=== PATIENT | female | born 1945 | race Caucasian/White ===

== ENCOUNTER → 2021-02-21 | Outpatient (CLI) | payer MEDICARE ==
[2021-02-21 13:48] LABS: Basophils % (A) 1 %; Eosinophils # (A) 0.2 k/uL (0-0.7); Eosinophils % (A) 2 %; HGB 13.4 gm/dL (11.4-16.0); Lymphocytes % (A) 16 %; MCH 29.8 pg (25.0-35.0); MCHC 32.8 g/dL (31.0-37.0); MCV 90.9 fL (80.0-100.0); Mean Platelet Volume 6.8; Monocytes # (A) 0.5 k/uL (0-1.0); Monocytes % (A) 8 %; Neutrophils # (A) 4.5 k/uL (1.3-7.7); Neutrophils % (A) 71 %; Platelet Count 317 k/uL (150-450); RBC 4.52 m/uL (3.80-5.40); RDW 12.2 % (11.5-15.5); WBC 6.3 k/uL (3.8-10.6)
[2021-02-21 13:58] LABS: Partial Thromboplastin Time 23.8 sec (22.0-30.0); Prothrombin Time 10.4 sec (9.0-12.0)
[2021-02-21 14:03] LABS: African American GFR (CKD) >90 (>60 ml/min/1.73 sqM); Anion Gap 8 mmol/L; Blood Urea Nitrogen 13 mg/dL (7-17); Calcium 9.4 mg/dL (8.4-10.2); Carbon Dioxide 27 mmol/L (22-30); Chloride 104 mmol/L (98-107); Glucose 108 mg/dL (74-99); Non-African American GFR(CKD) 89 (>60 ml/min/1.73 sqM); Potassium 4.1 mmol/L (3.5-5.1); Sodium 139 mmol/L (137-145)
[2021-02-21 14:30] LABS: Appearance,Urine Clear (Clear); Bilirubin,Urine Negative (Negative); Blood,Urine Trace (Negative); Color,Urine Yellow; Glucose,Urine (UA) Negative (Negative); Ketones,Urine 1+ (Negative); Leukocyte Esterase,Urine Moderate (Negative); Mucus,Urine Rare /hpf; Nitrite,Urine Negative (Negative); Protein,Urine Negative (Negative); RBC,Urine 2 /hpf (0-5); Specific Gravity,Urine 1.018 (1.001-1.035); Squamous Epithelial Cell,Urine 3 /hpf (0-4); WBC,Urine 10 /hpf (0-5)
== END | disposition home or self-care (01) ==
LOC: LABPAT 12:22
PROVIDERS: ATTEND Orthopaedic Surgery Orthopaedic Surgery of the Spine
DX: Z01.812 Encounter for preprocedural laboratory examination (principal); Z01.810 Encounter for preprocedural cardiovascular examination; M43.10 Spondylolisthesis, site unspecified
CPT/HCPCS: 36415; 80048; 81001; 85025; 85610; 85730; 87070

== ENCOUNTER 2021-03-02 06:47 | Observation (INO) | payer BC, MEDICARE ==
[2021-02-28 10:46] VITALS: BMI 34.3
[~2021-03-02 06:47] MED LIST: ceFAZolin 1,000 MG in SODIUM CHLORIDE 0.9% IRRIGATIO 1,000 ML IRRIGATION PRN
[2021-03-02] MEDS ORDERED: ONDANSETRON 4 MG/2 ML VIAL IVP ONE (07:40)
[2021-03-02] MEDS ORDERED: LIDOCAINE 1% (10MG/ML) FOR IV START INTRADERMA PRN (07:40)
[2021-03-02] MEDS: LACTATED RINGERS 1,000 ML IV SCH (08:02)
[2021-03-02] MEDS ORDERED: MIDAZOLAM 2 MG/2 ML VIAL ONE (08:12)
[2021-03-02] MEDS ORDERED: HYDROmorphone (PF) 1 MG/ML ONE (08:12)
[2021-03-02] MEDS ORDERED: KETAMINE 10 MG/ML 20 ML VIAL ONE (08:12)
[2021-03-02] MEDS ORDERED: PROPOFOL 10 MG/ML 20 ML VIAL IV ONE (08:12)
[2021-03-02] MEDS ORDERED: NEOSTIGMINE 1 MG/ML 10 ML VIAL ONE (08:12)
[2021-03-02] MEDS ORDERED: SUCCINYLCHOLINE CHLORIDE 100 MG/5 ML SYR IV ONE (08:12)
[2021-03-02] MEDS ORDERED: ROCURONIUM 10 MG/ML (5 ML VIAL) IV ONE (08:12)
[2021-03-02] MEDS ORDERED: GLYCOPYRROLATE 0.2 MG/ML 2 ML VIAL ONE (08:12)
[2021-03-02] MEDS ORDERED: LIDOCAINE 1% INJ 10MG/ML (20 ML MDV) ONE (08:12)
[2021-03-02] MEDS ORDERED: PHENYLEPHRINE-0.9% NACL SYG 1,000 MCG/10 ML SYRINGE ONE (08:12)
[2021-03-02] MEDS ORDERED: fentaNYL (PF) 50 MCG/ML 2 ML AMP ONE (08:12)
[2021-03-02] MEDS ORDERED: GELATIN SPONGE,ABSORB (LARGE) 1 EACH SPONGE TOPICAL ONE (08:17)
[2021-03-02] MEDS ORDERED: THROMBIN (BOVINE) 5,000 UNIT VIAL TOPICAL ONE (08:17)
[2021-03-02] MEDS ORDERED: LIDOCAINE 0.5%-EPI 1:200,000 50 ML VIAL SQ ONE (08:17)
[2021-03-02] MEDS ORDERED: LACTATED RINGERS 1,000 ML IV ONE (09:15)
[2021-03-02] MEDS ORDERED: SENNOSIDES-DOCUSATE SODIUM 1 EACH TAB PO PRN (11:38)
[2021-03-02] MEDS ORDERED: MAGNESIUM HYDROXIDE 2,400 MG/10 ML CUP PO PRN (11:38)
[2021-03-02] MEDS ORDERED: BENZOCAINE/MENTHOL LOZENG 1 EACH LOZENGE MUCOUS MEM PRN (11:38)
[2021-03-02] MEDS ORDERED: IPRATROPIUM-ALBUTEROL 3 ML NEB INHALATION PRN (11:39)
[2021-03-02] MEDS ORDERED: ALBUTEROL NEBULIZED 2.5 MG/3 ML INHALATION PRN (11:39)
[2021-03-02] MEDS ORDERED: ONDANSETRON 4 MG/2 ML VIAL IVP PRN (11:49)
--- NOTE | 2021-03-02 11:49 | P.OP ---
Date of Procedure: 03/02/21 Preoperative Diagnosis: Spondylolisthesis L4 5, severe spinal stenosis L4 5, degenerative scoliosis, degenerative disc disease, lower extremity radiculopathy, neurogenic claudication, lower extremity weakness Postoperative Diagnosis: Same Anesthesia: GETA Pathology: none sent Condition: stable Disposition: PACU Description of Procedure: DESCRIPTION OF PROCEDURE(S): BRIEF OPERATIVE NOTE Preoperative Diagnosis: Spondylolisthesis L4 5, severe spinal stenosis L4 5, degenerative scoliosis, degenerative disc disease, lower extremity radiculopathy, neurogenic claudication, lower extremity weakness Postoperative Diagnosis: Same Procedure: Laminectomy and decompression L4 [address] navigation aided Minimally invasive Posterior lateral decompression and fusion L4 5 Minimally invasive Transforaminal lumbar interbody fusion for a 360 fusion L4 5 Discectomy for decompression L4 5 Placement of interbody graft L4 5 Use of computer navigation for fusion Local autogenous bone grafting Aspiration of bone marrow from the vertebral body pedicle L4 the right Use of bone graft extenders Surgeon: Dr. Martin [employer] [facility]: Joel HALL who is present throughout the entire the case persistence during positioning, dissection, exposure, visualization, and all crucial elements of the case as well as closure. Anesthesia: General anesthesia per Dr. Sapp Estimated blood loss: Approximately 200 mL Complications: None apparent Components implanted: K2M minimally invasive [place] pedicle screw system withscrews measuring 6.5 mm in diameter to rods one [place] interbody cage with 10 mL of osteo amp bio4 bone graft substitute and 30 mL of the BX bone fibers to supplement the local autogenous bone graft and bone marrow aspirate Disposition: To recovery room in good stable condition. OPERATIVE INDICATIONS The patient has had severe issues at their lower extremity in her lower back over the past several years with significant worsening over the past several months. Over the past few months the patient had pain at their back and their lower extremities. The patient is having severe radicular symptoms at their lower extremity with weakness. The patient is having significant pain in their back. They are unable to obtain any comfort. She is having worsening pain and significant debility due to her back. She is found have spondylolisthesis with dynamic listhesis and severe spinal stenosis at L4 5 which correlated with her low back and lower extremity pain numbness tingling and weakness. We did aggressive conservative treatment with medications therapy and interventional pain management however thery were not having any relief. The patient also showed evidence of a listhesis with some dynamic instability. The patient has been through conservative treatment. We discussed various treatment options including surgery, and the patient wishes to proceed with surgery We discussed the risk, patient's alternatives and benefits of surgery including but not limited to, risk of bleeding risk of infection, risk of need for further surgery, risk of decreased, loss of motion, muscle function, malunion nonunion, hardware failure, nerve damage, paralysis, heart attack, blindness and . The patient had full workup preoperatively and understands that she has some increased risk particular due to her pulmonary function with the surgery of this magnitude. She felt that she could not go on with her back feeling the way did. They understood issues with the current pandemic and the possibility of exposure. OPERATIVE SUMMARY After discussing all the risks, patient alternatives and benefits at length, the patient elected to proceed with surgical intervention, signed informed consent, and presented for their procedure. The patient was seen and examined in the preoperative holding area and the surgical site was marked. The patient was given antibiotics and brought to the operating room. The patient was sedated and intubated by anesthesia in standard fashion. The patient was positioned on to the operating room table in a prone position on the appropriate frame which was well-padded and well molded. We were careful to pad any bony prominences and pressure points. We were careful to maintain the patient's cervical spine and good neutral alignment and position throughout. The patient was prepped and draped in a normal standard fashion. An appropriate timeout and keystone protocol performed. We were able to proceed with the surgery. The local wound area was infiltrated with local anesthetic. Over the right iliac crest I was able to make small stab incisions and establish a guidepin screw fixation to the iliac crest 2. I was able place the computer referencing device over the guidepins to establish an appropriate reference point for the Ziem CT navigation. We then were able to place patient in an appropriate drape and do a navigation spin for visualization and 3-D reconstruction of the lumbar spine. I was able utilize C-arm guidance and navigation to establish appropriate position over the pedicles bilaterally at the appropriate levels at L4 and L5 bilaterally . With the appropriate levels confirmed was able to make small incisions over the appropriate pedicle sites bilaterally. Utilizing the computer navigation device I was able to establish bony landmarks at the right iliac crest for a bony reference point for the navigation device. I was able to establish a [place]sh[place] needle over the lateral aspect of the pedicle and advanced the trocar into the pedicle being careful not to breech superiorly inferiorly medially or laterally using computer navigation device. Position was confirmed regularly with AP and lateral images on C-arm and with the computer navigation device at the appropriate levels bilaterally. I was able to establish the trocar into the pedicle appropriately into the posterior aspect of the vertebral body bilaterally at the appropriate levels. This was done at each of the pedicle positions and each of the vertebrae. At the superior vertebrae I was able to take approximately 25 mL of bone aspiration for use later in the case to supplement the allograft and autograft bone. I was able place the guidewire into the trocar and into the vertebral body appropriately under C-arm guidance. Dissection was taken down over the wire to the appropriate starting position for the screw placed. The appropriate length screw was chosen, threaded over the guidewire and screwed appropriately into the pedicle and vertebral body under C-arm guidance in excellent alignment and position with good bony purchase. This is done at each of the screw sites at the appropriate levels at L4 and L5 bilaterally. We decided to do a repeat spin and found good alignment and good position of all 4 screws at L4 and L5 With the screws intact I extended the incision to connect the screw hole sites on the most symptomatic side on the right. I dissected down to establish access over the pars and lamina to the base of the spinous process. I was able to expose the facet joint. The capsule the facet was taken down and showed some facet arthrosis at the joint. I was able to use a combination of curettes and Kerrison rongeurs and a high-speed drill to take down the facet joint and do a facetectomy at L4 5. Note was made of severe central and bilateral foraminal stenosis. There is severe facet arthrosis. I was able get excellent foraminal decompression and central decompression with undermining across midline to perform a laminectomy centrally and contralaterally. I was able get good central decompression. The ligamentum flavum was taken down to further decompress centrally and at bilateral neural foramen. I was able to expose the disc space and visualize the traversing nerve root. Note was made of some disc protrusion and disc herniation that was abutting the traversing nerve root at the level causing further compression of the nerve root. I was able to establish a annulotomy at the appropriate level protecting soft tissue and neural structures. Note was made of some disc desiccation at the disc. I performed a complete discectomy with accommodation of curettes and rasps and scrapers. I was able get good endplate preparation at the disc space. I sized for the appropriate size interbody spacer protecting the soft tissue and neural structures. The wound was copiously irrigated and suctioned dry. There is no evidence of any dural tear or leak. I was able to pack the disc space with local autogenous bone graft as well as a small amount of bone graft which was also placed into the interbody cage itself. Protecting the soft tissue structures and neural structures I was able place the interbody cage in good alignment and good position with good fit and fill at the interbody space. Position was confirmed with C-arm guidance. Good hemostasis maintained. There is no evidence of any dural tear or leak. The wound was irrigated and suctioned dry. With the hardware intact, intraoperative C-arm imaging was again taken which showed good alignment and position of the hardware at the appropriate levels. We were then able to measure, contour and place the rods and appropriate hardwa re bilaterally. I was able to place capcrews, tighten them down, and torque them with the torque screwdriver appropriately. With this intact I was able to place the local autogenous bone graft with additional bone graft enhancer as necessary into the posterior lateral gutters over the decorticated transverse processes and facet joints on the contralateral side. The remainder of the bone graft was placed over the facet joint on the contralateral side after taking down the facet joint capsule. With the bone graft intact, a stable construct, and good decompression at the appropriate levels, we were able to proceed with closure. Good hemostasis was maintained. There is no evidence of dural tear or leak. The fascia was closed for a watertight closure. he subcuticular tissue was closed with absorbable suture. The wound was cleaned and dried and dressed with the appropriate dressing. The drapes were broken down. The patient was gently rolled back onto their hospital bed being careful to maintain their cervical spine and good neutral alignment and position. They were woken up by anesthesia, extubated, and brought to the recovery room in good stable condition. The patient will be admitted to the hospital for appropriate postoperative care, medical management and monitoring. We will continue to follow them closely about the postoperative course.
--- NOTE | 2021-03-02 11:56 | FL ---
EXAMINATION TYPE: FL guidance operating room DATE OF EXAM: 03/02/2021 HISTORY: Fluoroscopy time 32 seconds of fluoroscopy provided. IMPRESSION: 1. Fluoroscopy time.
--- NOTE | 2021-03-02 11:56 | XR ---
EXAM TYPE: LUMBAR SPINE X RAY SERIES COMPARISON: NONE HISTORY: Intraoperative views TECHNIQUE: 2 intraoperative views are submitted with limited resolution. FINDINGS: Limited resolution intraoperative views demonstrate postsurgical change involving the lower lumbar sp ine which appears in near-anatomic alignment as visualized. IMPRESSION: 1. Postsurgical changes.
[2021-03-02] MEDS: SODIUM CHLORIDE 0.9% 1,000 ML IV SCH ×2 (14:11→23:35)
[2021-03-02] MEDS: HYDROmorphone 0.5 MG/0.5 ML SYRINGE IVP PRN ×2 (14:59→19:07)
[2021-03-02] MEDS: GABAPENTIN 100 MG CAP PO SCH ×2 (17:11→21:48)
[2021-03-02] MEDS: SYMBICORT 160-4.5 MCG INHALER INHALATION SCH (20:09)
[2021-03-02] MEDS: CYCLOBENZAPRINE 5 MG TAB PO PRN (20:28)
[2021-03-02] MEDS: HYDROcodone/APAP 5-325MG 1 EACH TAB PO PRN (20:28)
[2021-03-02] MEDS: NITROFURANTOIN MONOHYD/M-CRYST 100 MG CAP PO SCH (21:48)
[2021-03-03] MEDS: HYDROmorphone 0.5 MG/0.5 ML SYRINGE IVP PRN (00:07)
[2021-03-03] MEDS: LACTATED RINGERS 1,000 ML IV SCH ×2 (03:16→21:16)
[2021-03-03] MEDS: HYDROcodone/APAP 5-325MG 1 EACH TAB PO PRN (05:00)
[2021-03-03] MEDS: CYCLOBENZAPRINE 5 MG TAB PO PRN ×2 (05:01→20:39)
[2021-03-03] MEDS ORDERED: HYDROmorphone 0.5 MG/0.5 ML SYRINGE IVP PRN (07:00)
[2021-03-03] MEDS: SYMBICORT 160-4.5 MCG INHALER INHALATION SCH ×2 (07:43→20:38)
[2021-03-03] MEDS ORDERED: FUROSEMIDE 20 MG TAB PO SCH (09:00)
[2021-03-03] MEDS: POTASSIUM CHLORIDE ER 10 MEQ TAB.ER.PRT PO SCH (10:01)
[2021-03-03] MEDS: NITROFURANTOIN MONOHYD/M-CRYST 100 MG CAP PO SCH (10:01)
[2021-03-03] MEDS: GABAPENTIN 100 MG CAP PO SCH ×3 (10:01→21:05)
[2021-03-03] MEDS: CHOLECALCIFEROL 25 MCG (1000 IU) TABLET PO SCH (10:02)
[2021-03-03] MEDS: ASPIRIN 81 MG PO SCH (10:02)
[2021-03-03] MEDS: LACTOBACILLUS ACIDOPH & BULGAR 1 EACH PACKET PO SCH (10:02)
--- NOTE | 2021-03-03 10:07 | P.PN ---
Progress Note - Text Progress Note Date: 03/03/21 Postoperative day #1 Patient is seen and examined today at bedside. The patient has some pain around the surgical site as expected. Pain is being controlled with medication to some degree but she is still complaining of pain despite oral medications. She says the IV worked better for her overnight. Physical Exam Afebrile with stable vital signs Abdomen is soft nontender. Chest has good excursion deep and space expiration The incision site is clean dry and intact. No erythema there is no purulence. Extremities have not had neurologic change from prior to surgery. She has dorsal to plantar flexion intact. Her sensory is intact. Her calves and thighs are soft nontender. She still has her Neri intact. Calves and thighs were soft nontender without evidence of DVT. Assessment/Plan Postoperative day #1 status post minimally invasive decompression fusion for her spondylolisthesis with severe spinal stenosis at L4 5 and lower extremity radiculopathy Patient is progressing as expected from the surgery. With her advanced age she is likely be somewhat slow in her recovery but she is doing well thus far. We will see if he can do a better job controlling her pain with oral medication. She was able stand up yesterday which is encouraging and we will increase her mobility detail with physical therapy. We will continue to increase the patient's mobilization with therapy. It is likely the patient will need extended care versus home health post hospitalization and case management work on that We will continue pain control with oral or IV medications. We'll continue to follow patient closely.
[2021-03-03 10:56] LABS: Basophils # (A) 0.1 k/uL (0-0.2); Basophils % (A) 0 %; Eosinophils # (A) 0.1 k/uL (0-0.7); Eosinophils % (A) 1 %; HCT 38.3 % (34.0-46.0); HGB 12.2 gm/dL (11.4-16.0); Lymphocytes # (A) 0.9 k/uL (1.0-4.8); Lymphocytes % (A) 5 %; MCH 29.2 pg (25.0-35.0); MCHC 31.7 g/dL (31.0-37.0); MCV 92.1 fL (80.0-100.0); Mean Platelet Volume 6.9; Monocytes # (A) 1.2 k/uL (0-1.0); Monocytes % (A) 7 %; Neutrophils # (A) 15.4 k/uL (1.3-7.7); Neutrophils % (A) 86 %; Platelet Count 350 k/uL (150-450); RBC 4.16 m/uL (3.80-5.40); RDW 12.2 % (11.5-15.5)
--- NOTE | 2021-03-03 11:12 | P.CONS ---
History of Present Illness - Reason for Consult Leukocytosis - History of Present Illness Patient is a pleasant 75-year-old female with multiple medical problems underwent minimally invasive decompressive fusion for her spondylolisthesis with severe spinal stenosis at L4-L5 pharyngeal lower extremity severe radiculopathy. Patient pain is not well controlled on oral medication patient is also on IV opiates for pain in the her oral [place] dose is being increased to 7.5 mg. Patient denied any fever chills patient uses Lasix for lower extremity edema. Patient probably doesn't have any medicine have any History of congestive heart failure I ordered CBC and a CMP. CBC showed leukocytosis which is expected post surgery. REVIEW OF SYSTEMS: CONSTITUTIONAL: No fever, no malaise, no fatigue. HEENT: No recent visual problems or hearing problems. Denied any sore throat. CARDIOVASCULAR: No chest pain, orthopnea, PND, no palpitations, no syncope. PULMONARY: No shortness of breath, no cough, no hemoptysis. GASTROINTESTINAL: No diarrhea, no nausea, no vomiting, no abdominal pain. NEUROLOGICAL: No headaches, no weakness, no numbness. HEMATOLOGICAL: Denies any bleeding or petechiae. GENITOURINARY: Denies any burning micturition, frequency, or urgency. MUSCULOSKELETAL/RHEUMATOLOGICAL: Back pain ENDOCRINE: Denies any polyuria or polydipsia. The rest of the 14-point review of systems is negative. PHYSICAL EXAMINATION: GENERAL: The patient is alert and oriented x3, not in any acute distress. Well developed, well nourished. HEENT: Pupils are round and equally reacting to light. EOMI. No scleral icterus. No conjunctival pallor. Normocephalic, atraumatic. No pharyngeal erythema. No thyromegaly. CARDIOVASCULAR: S1 and S2 present. No murmurs, rubs, or gallops. PULMONARY: Chest is clear to auscultation, no wheezing or crackles. ABDOMEN: Soft, nontender, nondistended, normoactive bowel sounds. No palpable organomegaly. MUSCULOSKELETAL: Deferred to orthopedic surgery EXTREMITIES: No cyanosis, clubbing, or pedal edema. NEUROLOGICAL: Gross neurological examination did not reveal any focal deficits. SKIN: No rashes. Assessment and plan -Leukocytosis reactive secondary to surgery -Back pain patient is status post minimally invasive fusion surgery for back pain. -COPD without any acute exacerbation patient had remote history of smoking -Patient doesn't have any symptoms of UTI nitrofurantoin will be discontinued -Peripheral neuropathy -Chronic lower extremity edema patient presently doesn't have any edema patient's Lasix will be held as well as IV fluids will be held if needed patient will be started on low-dose of Lasix DVT prophylaxis: As per primary service Past Medical History Past Medical History: Heart Failure, COPD, Pneumonia Additional Past Medical History / Comment(s): hx migraines, left ankle edema, hiatal hernia, irregular bowel movements, "disks slide out of place", "borderline cholesterol", urinary incontinence, hx cervical cancer, has issues with balance History of Any Multi-Drug Resistant Organisms: None Reported Past Surgical History: Appendectomy, Hysterectomy, Tonsillectomy Additional Past Surgical History / Comment(s): janet cataracts Past Anesthesia/Blood Transfusion Reactions: Motion Sickness Additional Past Anesthesia/Blood Transfusion Reaction / Comm: "bad motion sickness". "local at dentist does not last long" Smoking Status: Former smoker - Past Family History Mother Family Medical History: No Reported History Medications and Allergies Home Medications Medication Instructions Recorded Confirmed Type Albuterol Inhaler [Ventolin Hfa 2 puff INHALATION DIRECTED PRN 02/28/21 03/02/21 History Inhaler] Aspirin [Adult Low Dose Aspirin EC] 81 mg PO DAILY 02/28/21 02/28/21 History Cholecalciferol (Vitamin D3) 125 mcg PO DAILY 02/28/21 03/02/21 History [Vitamin D3 (125 MCG = 5,000 IU)] Fluticasone/Salmeterol [Advair Hfa 1 puff INHALATION BID 02/28/21 03/02/21 History 115-21 Mcg Inhaler] Furosemide [Lasix] 20 mg PO DAILY 02/28/21 02/28/21 History Gabapentin [Neurontin] 100 mg PO TID 02/28/21 02/28/21 History Ipratropium-Albuterol Nebulize 3 ml INHALATION DIRECTED PRN 02/28/21 03/02/21 History [Duoneb 0.5 mg-3 mg/3 ml Soln] L.acidoph,Paracasei, B.lactis 1 each PO DAILY 02/28/21 03/02/21 History [Probiotic] Potassium Chloride 10 meq PO DAILY 02/28/21 03/02/21 History Nitrofurantoin Monohyd/M-Cryst 100 mg PO Q12HR 03/01/21 03/02/21 History [Macrobid] Allergies Allergy/AdvReac Type Severity Reaction Status Date / Time celecoxib [From Celebrex] Allergy Rapid Verified 02/28/21 10:27 Heart Rate ciprofloxacin [From Cipro] Allergy "lighteaded Verified 02/28/21 10:26 " Physical Exam Vitals: Vital Signs Temp Pulse Pulse Pulse Resp BP Pulse Ox 03/03/21 06:02 99.0 F 03/03/21 05:05 97 18 94 L 03/03/21 04:26 100.8 F H 117 H 18 122/70 92 L 03/02/21 20:37 98.5 F 92 18 150/81 94 L 03/02/21 19:45 18 03/02/21 16:00 78 133/79 03/02/21 15:00 87 143/79 03/02/21 14:30 76 142/82 03/02/21 14:00 84 151/87 03/02/21 13:45 86 150/84 03/02/21 13:30 82 142/84 03/02/21 13:15 84 19 139/80 94 L 03/02/21 12:38 84 16 157/76 99 03/02/21 12:23 87 18 162/80 98 03/02/21 12:08 80 18 159/72 98 03/02/21 11:53 97.2 F L 83 22 140/72 100 Intake and Output 03/02/21 03/03/21 03/03/21 22:59 06:59 14:59 Intake Total 350 850 Output Total 400 Balance 350 450 Intake: Intake, IV Titration 350 850 Amount Sodium Chloride 0.9% 1, 300 800 000 ml @ 75 mls/hr IV . [id number] SALLY Rx#:[id number] ceFAZolin 2 gm In Sodium 50 50 Chloride 0.9% 50 ml @ 100 mls/hr IVPB Q8HR SALLY Rx# :[id number] Output: Urine 400 Other: Voiding Method Indwelling Catheter Indwelling Catheter Results CBC & Chem 7: 03/03/21 10:20 Labs: Abnormal Lab Results - Last 24 Hours (Table) 03/03/21 Range/Units 10:20 WBC 18.0 H (3.8-10.6) k/uL Neutrophils # 15.4 H (1.3-7.7) k/uL Lymphocytes # 0.9 L (1.0-4.8) k/uL Monocytes # 1.2 H (0-1.0) k/uL
[2021-03-03 11:36] LABS: African American GFR (CKD) >90 (>60 ml/min/1.73 sqM); Anion Gap 8 mmol/L; Blood Urea Nitrogen 14 mg/dL (7-17); Calcium 8.8 mg/dL (8.4-10.2); Carbon Dioxide 27 mmol/L (22-30); Chloride 101 mmol/L (98-107); Glucose 123 mg/dL (74-99); Non-African American GFR(CKD) 85 (>60 ml/min/1.73 sqM); Potassium 4.2 mmol/L (3.5-5.1); Sodium 136 mmol/L (137-145)
[2021-03-03] MEDS: HYDROcodone/APAP 7.5-325MG 1 EACH TAB PO PRN ×2 (12:38→20:01)
[2021-03-04] MEDS: HYDROcodone/APAP 7.5-325MG 1 EACH TAB PO PRN ×3 (04:38→19:06)
[2021-03-04] MEDS: CYCLOBENZAPRINE 5 MG TAB PO PRN ×2 (04:38→14:31)
[2021-03-04 06:16] LABS: ALT 23 U/L (4-34); AST 59 U/L (14-36); African American GFR (CKD) >90 (>60 ml/min/1.73 sqM); Albumin 2.7 g/dL (3.5-5.0); Albumin/Globulin Ratio 1.2; Alkaline Phosphatase 63 U/L (38-126); Anion Gap 4 mmol/L; Blood Urea Nitrogen 17 mg/dL (7-17); Calcium 8.4 mg/dL (8.4-10.2); Carbon Dioxide 29 mmol/L (22-30); Chloride 100 mmol/L (98-107); Globulin 2.3 g/dL; Glucose 154 mg/dL (74-99); Non-African American GFR(CKD) 82 (>60 ml/min/1.73 sqM); Potassium 3.8 mmol/L (3.5-5.1); Sodium 133 mmol/L (137-145); Total Bilirubin 0.6 mg/dL (0.2-1.3)
[2021-03-04] MEDS: SYMBICORT 160-4.5 MCG INHALER INHALATION SCH ×2 (07:22→20:33)
[2021-03-04] MEDS: traMADol 50 MG TAB PO PRN ×2 (07:38→14:31)
[2021-03-04] MEDS: POTASSIUM CHLORIDE ER 10 MEQ TAB.ER.PRT PO SCH (07:38)
[2021-03-04] MEDS: GABAPENTIN 100 MG CAP PO SCH ×3 (07:38→20:06)
[2021-03-04] MEDS: CHOLECALCIFEROL 25 MCG (1000 IU) TABLET PO SCH (07:38)
[2021-03-04] MEDS: LACTOBACILLUS ACIDOPH & BULGAR 1 EACH PACKET PO SCH (07:38)
[2021-03-04] MEDS: ASPIRIN 81 MG PO SCH (07:38)
--- NOTE | 2021-03-04 09:08 | P.PN ---
Progress Note - Text Progress Note Date: 03/04/21 Orthopedic Spine: History of present illness: Patient is a pleasant 75-year-old female who is seen and examined at the bedside following posterior lateral decompression and fusion performed Sunday. She does feel her pain is better controlled today as compared to yesterday but continues to have significant pain at her surgical sites. She also has some pain over her thighs bilaterally. She was able to sit in a bedside chair for approximately 2 hours yesterday. She is planning to work with physical therapy today to work on increasing mobility. Overall, she does not feel she would be able to be discharged home. She will be going to be discharged to a rehabilitation facility. Consultation has been placed with social work for discharge planning to a rehabilitation facility. Her Neri catheter has been discontinued. She denies any abdominal pain. She is currently on a bedpan. She continues to be seen and examined by medicine for medical management. Nursing states she does have some crackles in her lungs and a chest x-ray has been ordered. Currently does not complain of nausea, vomiting, fever, or chills. Her other medical diagnoses include heart disease, COPD,, lung disease, and history of cervical cancer. Physical Exam Lumbar Fusion: Status post surgical day number Patient is awake, alert, and oriented 3 Vital signs stable Adequate chest excursion with deep inspiration and expiration Dorsiflexion, plantarflexion, and extensor hallucis longus positive sustained bilaterally No signs or symptoms of DVT; no calf pain; pneumatic cuffs intact bilateral lower extremities Optifoam dressings remain intact over the lumbar spine and right iliac crest Neurovascularly intact bilaterally lower extremities Assessment: Status post L4-5 minimally invasive posterior lateral decompression and fusion with transforaminal lumbar interbody fusion Low back pain Lower extremity radiculopathy L4-5 spondylolisthesis Lumbar degenerative scoliosis Neurogenic claudication Lumbar degenerative disc disease L4-5 severe spinal canal stenosis Lower extremity weakness COPD Lung disease Heart disease History cervical cancer Plan: 1. Ambulate as tolerated; work with Physical Therapy to increase mobilization 2. Continue pain control with IV and oral medications; will plan to begin weaning the patient off of IV narcotic medication in anticipation for discharge to a rehabilitation facility in the next 1-2 days; MAPS has been reviewed today, 03/04/2021, with an Overall Overdose Risk Score of 210. An "Opiod Start Talking" Form has been signed and placed in the patient's chart. A prescription has been written for [place] 7.5 mg/325 mg 1 tab every 6 hours as needed for pain, dispensed #28 3. Dressings to remain intact with Optifoam; patient may shower with dressings intact 4. Medical management can continue to manage patient for patient's other medical diagnoses; chest x-rays currently been ordered as nursing states patient had some crackles in her lungs 5. We will continue to follow the patient closely; depending on the patient's progress, we may plan for discharge to a rehabilitation facility as early as tomorrow, 03/05/2021 6. Patient can follow-up with Joel Becker PA-C or Dr. Wayne Martin at [facility] in 2-3 weeks following discharge
--- NOTE | 2021-03-04 10:30 | XR ---
EXAMINATION TYPE: XR chest 1V portable DATE OF EXAM: 03/04/2021 COMPARISON: Chest x-ray 02/21/2021 HISTORY: Preop TECHNIQUE: Single frontal view of the chest is obtained. FINDINGS: Bandlike area of increased attenuation adjacent to the left heart border likely was presen t on prior exam and may reflect some atelectasis or scarring. There is no evident pneumothorax or ple ural effusion. Cardiac mediastinal silhouette is stable candidate for differences in technique. There may be a spinal curvature. Nodular density in the right lower lobe is thought likely to be calcified , representing old granulomatous disease. There is some bronchial wall thickening. IMPRESSION: There may be some minimal basilar atelectasis or scarring. Suspect old granulomatous dis ease. Rotated exam.
[2021-03-04 15:42] LABS: Appearance,Urine Clear (Clear); Bacteria,Urine Rare /hpf; Bilirubin,Urine Negative (Negative); Blood,Urine Small (Negative); Color,Urine Yellow; Glucose,Urine (UA) Negative (Negative); Ketones,Urine Negative (Negative); Leukocyte Esterase,Urine Trace (Negative); Mucus,Urine Rare /hpf; Nitrite,Urine Negative (Negative); Protein,Urine 1+ (Negative); RBC,Urine 2 /hpf (0-5); Specific Gravity,Urine 1.021 (1.001-1.035); Squamous Epithelial Cell,Urine 2 /hpf (0-4); Urobilinogen,Urine <2.0 mg/dL (<2.0); WBC,Urine 3 /hpf (0-5)
--- NOTE | 2021-03-04 20:07 | PN ---
PROGRESS NOTE DATE OF SERVICE: 03/04/2021 This 75-year-old woman who was admitted after laminectomy and decompression and fusion of L4-5 is improving significantly. No chest pain. No palpitations. No fever. PHYSICAL EXAMINATION: Alert and oriented x3. Pulse is 81, blood pressure 121/75, respiration 18, temperature 98.2, pulse ox 98% on room air. HEENT: Conjunctivae normal. NECK: No jugular venous distention. CARDIOVASCULAR: S1, S2 muffled. RESPIRATION: Breath sounds diminished at the bases. A few rhonchi. No crackles. ABDOMEN: Soft. Non-tender. LEGS: No edema. No swelling. NERVOUS SYSTEM: No focal deficit. LABS: WBC 18, hemoglobin 12.2. Sodium 136. Glucose 123. UA noted. ASSESSMENT: 1. Status post laminectomy and decompression of L4-5 for severe spondylo, L4-5, and severe spinal stenosis. 2. Hyponatremia, mild. 3. Increased white count, possibly reactive. 4. History of congestive heart failure. 5. Chronic obstructive pulmonary disease. 6. History of pneumonia. 7. History of migraine. 8. History of hiatal hernia. 9. History of left ankle edema. 10.History of appendectomy. 11.History of hysterectomy. 12.History of motion sickness. 13.Remote history of nicotine dependence. 14.Obesity with body mass index of 33.9. 15.FULL CODE. RECOMMENDATIONS AND DISCUSSION: In this 75-year-old woman who presented with multiple complex medical issues, we will monitor the patient closely, continue the current medications, continue symptomatic treatment, continue with DVT prophylaxis. Continue with the home medications. Otherwise, PT/OT evaluation. 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 Closely follow with Orthopedic Surgery. Further recommendations to follow. MMODL / IJN: [id number] / MTDD
[2021-03-04] MEDS: IPRATROPIUM-ALBUTEROL 3 ML NEB INHALATION SCH (20:33)
[2021-03-05] MEDS: HYDROcodone/APAP 7.5-325MG 1 EACH TAB PO PRN ×2 (01:08→13:15)
[2021-03-05] MEDS: CYCLOBENZAPRINE 5 MG TAB PO PRN ×2 (05:15→13:15)
[2021-03-05] MEDS: HYDROmorphone 0.5 MG/0.5 ML SYRINGE IVP PRN (07:15)
[2021-03-05] MEDS: GABAPENTIN 100 MG CAP PO SCH ×2 (07:55→17:02)
[2021-03-05] MEDS: LACTOBACILLUS ACIDOPH & BULGAR 1 EACH PACKET PO SCH (07:55)
[2021-03-05] MEDS: ASPIRIN 81 MG PO SCH (07:55)
[2021-03-05] MEDS: CHOLECALCIFEROL 25 MCG (1000 IU) TABLET PO SCH (07:55)
[2021-03-05] MEDS: POTASSIUM CHLORIDE ER 10 MEQ TAB.ER.PRT PO SCH (07:55)
--- NOTE | 2021-03-05 08:32 | P.DS ---
Providers Date of admission: 03/03/21 19:13 Attending physician: Yovanny Martin Consults: 03/02/21 14:04 Consult Physician Routine Consulting Provider: Rainer Trevino Consult Reason/Comments: Medical management Do you want consulting provider notified?: Yes Primary care physician: [place] Hospital Course: The patient presented on the day of admission as per their operative note. She had severe spinal stenosis with spondylolisthesis at L4 5 and underwent minimally invasive decompression and fusion L4 5 as per her operative note. She feels though she still has significant pain at her back and lower extremities but is making some progress with her mobility and her pain control. She feels she has had some improvement of her legs but still has some numbness tingling at her bilateral thighs. Physical Exam The incision site is clean dry and intact. There is no erythema no drainage. There is no purulence no evidence of infection. Abdomen soft and nontender. She is tolerating her diet appropriately Chest has good excursion with deep inspiration and expiration. The patient has active and passive range of motion intact at the upper and lower extremities. There is no acute change in neurologic status. She has sustained dorsal to plantar flexion and EHL intact. She seems to have some limited effort in terms of trying to mobilize. Hospital Course Postoperative day #3 status post minimally invasive decompression and fusion at L4 5 for her severe spinal stenosis with spondylolisthesis and lower extremity radiculopathy The patient has been making adequate progress postoperatively. She is improved in terms of pain control and her mobility at her legs though she is somewhat discouraged that she is not doing better than she already is. They have completed the prophylactic antibiotics without any signs or symptoms of infection. The patient has been able to advance their diet, and is tolerating diet adequately. The pain was initially controlled with IV medications and is now controlled appropriately with oral medications. The patient has been able to increase their mobilization. She has somewhat limited effort and had some generalized weakness prior to surgery which is encouraged to try to mobilize further and she is agreeable to this. She still having pain at her back and lower extremities from her surgery but she is making progress on a daily basis and I tried to encourage her to be positive about this. The patient has progressed appropriately. I think they are in good stable condition for discharge today for snf. They will be sent home with appropriate prescriptions. I answered their questions to the best of my ability in a language that they can understand and they are agreeable with the plan. They will follow up as directed in approximately 2 weeks or sooner if she is having problems. Patient Condition at Discharge: Fair Plan - Discharge Summary Discharge Rx Participant: No New Discharge Prescriptions: New HYDROcodone/APAP 7.5-325MG [[place] 7.5-325] 1 each PO Q6HR PRN #28 tab PRN Reason: Pain No Action Fluticasone/Salmeterol [Advair Hfa 115-21 Mcg Inhaler] 1 puff INHALATION BID Gabapentin [Neurontin] 100 mg PO TID Aspirin [Adult Low Dose Aspirin EC] 81 mg PO DAILY L.acidoph,Paracasei, B.lactis [Probiotic] 1 each PO DAILY Nitrofurantoin Monohyd/M-Cryst [Macrobid] 100 mg PO Q12HR Albuterol Inhaler [Ventolin Hfa Inhaler] 2 puff INHALATION DIRECTED PRN PRN Reason: sob Potassium Chloride 10 meq PO DAILY Furosemide [Lasix] 20 mg PO DAILY Ipratropium-Albuterol Nebulize [Duoneb 0.5 mg-3 mg/3 ml Soln] 3 ml INHALATION DIRECTED PRN PRN Reason: sob Cholecalciferol (Vitamin D3) [Vitamin D3 (125 MCG = 5,000 IU)] 125 mcg PO DAILY Discharge Medication List Albuterol Inhaler [Ventolin Hfa Inhaler] 2 puff INHALATION DIRECTED PRN 02/28/21 [History] Aspirin [Adult Low Dose Aspirin EC] 81 mg PO DAILY 02/28/21 [History] Cholecalciferol (Vitamin D3) [Vitamin D3 (125 MCG = 5,000 IU)] 125 mcg PO DAILY 02/28/21 [History] Fluticasone/Salmeterol [Advair Hfa 115-21 Mcg Inhaler] 1 puff INHALATION BID 02/28/21 [History] Furosemide [Lasix] 20 mg PO DAILY 02/28/21 [History] Gabapentin [Neurontin] 100 mg PO TID 02/28/21 [History] Ipratropium-Albuterol Nebulize [Duoneb 0.5 mg-3 mg/3 ml Soln] 3 ml INHALATION DIRECTED PRN 02/28/21 [History] L.acidoph,Paracasei, B.lactis [Probiotic] 1 each PO DAILY 02/28/21 [History] Potassium Chloride 10 meq PO DAILY 02/28/21 [History] Nitrofurantoin Monohyd/M-Cryst [Macrobid] 100 mg PO Q12HR 03/01/21 [History] HYDROcodone/APAP 7.5-325MG [[place] 7.5-325] 1 each PO Q6HR PRN #28 tab 03/04/21 [Rx] Follow up Appointment(s)/Referral(s): Joel Becker, ETTA [PHYSICIAN SOLVENT STATION ATTENDANT] - 2 Weeks (Patient may follow-up with Joel Becker PA-C or Dr. Wayne Martin at [facility] in 2-3 weeks following discharge. ) Activity/Diet/Wound Care/Special Instructions: 1. Patient may shower with Optifoam dressing intact. 2. Patient may remove Optifoam dressing in 4 days and shower without a dressing at that time. 3. Patient should refrain from driving until at least after their first follow- up appointment in the office. 4. Patient should avoid excessive bending, twisting, lifting; avoid overhead lifting; no lifting greater than 10 pounds 5. Take medications as prescribed 6. Do not soak in tub Discharge Disposition: TRANSFER TO SNF/ECF
[2021-03-05] MEDS: IPRATROPIUM-ALBUTEROL 3 ML NEB INHALATION SCH ×2 (08:55→12:16)
[2021-03-05] MEDS: SYMBICORT 160-4.5 MCG INHALER INHALATION SCH (08:55)
[2021-03-05 12:05] VITALS: BP 143/70; PULSE 86; RESP 17; TEMP 98.3
[2021-03-05] MEDS: LACTATED RINGERS 1,000 ML IV SCH (14:59)
--- NOTE | 2021-03-05 17:11 | PN ---
PROGRESS NOTE DATE OF SERVICE: 03/05/2021. CHIEF COMPLAINT: This 75-year-old woman was admitted after laminectomy decompression and is planned to go to [facility] at this time. No chest pain. No palpitations. No fever. PHYSICAL EXAMINATION: Alert and oriented times three. Pulse 86, blood pressure 140/70, respiration 17, temperature 98.2. Pulse ox 93% on room air. HEENT: Conjunctivae normal. CARDIOVASCULAR: S1, S2 muffled. RESPIRATIONS: Breath sounds diminished in the bases. A few scattered rhonchi. ABDOMEN: Soft. NERVOUS SYSTEM: No focal deficits. Examination of the back status post surgery. LABS: Sodium 133. Other labs are noted. ASSESSMENT: 1. Status post laminectomy decompression L4-5 for spondylolisthesis L4-5 with severe spinal stenosis. 2. Mild hyponatremia. 3. Increased WBC, possibly reactive. 4. History of congestive heart failure. 5. Chronic obstructive pulmonary disease. 6. History of pneumonia. 7. History of migraines. 8. History of hiatal hernia. 9. History of left ankle edema. 10.History of appendectomy. 11.History of hysterectomy. 12.History of motion sickness. 13.Remote history of nicotine dependence. 14.Obesity with body mass index of 33.9. 15.FULL CODE. RECOMMENDATIONS AND DISCUSSION: I recommend to continue current medications, symptomatic treatment. Otherwise, follow with Dr. Arvizu or Dr. Quintero in the [facility]. Medication reconciliation provided. Continue to monitor. Guarded prognosis. Further recommendations to follow. MMODL / IJN: [id number] /
== END 2021-03-05 18:30 ==
LOC: OR 06:47 → 5NMEDONC 11:35 → OR 03-03 16:26 → 5NMEDONC 03-03 19:13
PROVIDERS: ADMIT Orthopaedic Surgery Orthopaedic Surgery of the Spine; ATTEND Orthopaedic Surgery Orthopaedic Surgery of the Spine
DX: M43.16 Spondylolisthesis, lumbar region (principal); M51.16 Intervertebral disc disorders with radiculopathy, lumbar region; D72.829 Elevated white blood cell count, unspecified; J44.9 Chronic obstructive pulmonary disease, unspecified; M41.86 Other forms of scoliosis, lumbar region; M48.062 Spinal stenosis, lumbar region with neurogenic claudication; M51.36 Other intervertebral disc degeneration, lumbar region; E87.1 Hypo-osmolality and hyponatremia; E66.9 Obesity, unspecified; Z68.33 Body mass index [BMI] 33.0-33.9, adult; Z87.891 Personal history of nicotine dependence; G62.9 Polyneuropathy, unspecified; I50.9 Heart failure, unspecified; G43.909 Migraine, unspecified, not intractable, without status migrainosus; R32 Unspecified urinary incontinence; K44.9 Diaphragmatic hernia without obstruction or gangrene; Z20.822 Contact with and (suspected) exposure to COVID-19; Z87.01 Personal history of pneumonia (recurrent); Z85.41 Personal history of malignant neoplasm of cervix uteri; Z90.49 Acquired absence of other specified parts of digestive tract; Z90.710 Acquired absence of both cervix and uterus; Z79.899 Other long term (current) drug therapy; Z79.82 Long term (current) use of aspirin; Z79.51 Long term (current) use of inhaled steroids; Z88.8 Allergy status to other drugs, medicaments and biological substances; Z88.1 Allergy status to other antibiotic agents
CPT/HCPCS: 94640 ×5; 97530 ×2; 97162; 97535; 97166; 86900; 86901; 80053; 80048; 85025; 86850; 81001; 87635; 72100; 71045; 22633; 20936; 63047; 63048; 76376; 22853; 20930; G0378 ×3; C1713; C1762; J2250; J2710; J0690 ×2; J2405; J2001; J3010; J1170 ×4; J2370; J0330; J2704

== ENCOUNTER → 2023-09-27 | Outpatient (CLI) | payer MEDICARE | END | disposition home or self-care (01) | LOC: RADNMMAIN 09:54 | PROVIDERS: ATTEND Psychiatry & Neurology Neurology | DX: G25.0 Essential tremor (principal) ==